=== PATIENT | female | born 1990 | race Two or more races ===

== ENCOUNTER 2021-10-22 23:29 | Emergency (ER) | payer OTHER ==
[~2021-10-22] VITALS: Ht 165.1 cm; Wt 66.0 kg
[2021-10-22 23:33] VITALS: BP 126/79
== END 2021-10-23 02:08 | disposition left against medical advice (07) ==
LOC: ER 23:29
DX: Z53.21 Procedure and treatment not carried out due to patient leaving prior to being seen by health care provider (principal)
CPT/HCPCS: 93005

== ENCOUNTER 2024-11-28 01:49 | Emergency (ER) | payer OTHER ==
[~2024-11-28] VITALS: Ht 165.1 cm; Wt 65.9 kg
[2024-11-28 01:52] VITALS: TEMP 36.4; O2SAT 100
[2024-11-28 03:40] VITALS: BP 126/69; PULSE 67; RESP 18; O2SAT 100
== END 2024-11-28 03:42 | disposition home or self-care (01) ==
LOC: ER 01:49
DX: E10.649 Type 1 diabetes mellitus with hypoglycemia without coma (principal)
CPT/HCPCS: 82962; 99282; Z7610

== ENCOUNTER 2025-04-12 15:52 | Emergency (ER) | payer OTHER ==
[~2025-04-12] VITALS: Ht 167.6 cm; Wt 75.0 kg
[2025-04-12 15:59] VITALS: O2SAT 100
[2025-04-12 16:45] LABS: BASOPHILS % 0.4 % (0.0-2.0); EOSINOPHILS % 1.2 % (0.0-5.0); HEMATOCRIT. 39.8 % (36.0-48.0); HEMOGLOBIN. 13.0 g/dL (12.0-16.0); LYMPHOCYTES % 37.5 % (20.0-50.0); MEAN PLATELET VOLUME 9.2 fl (7.4-10.4); MONOCYTES % 8.3 % (2.0-8.0); NEUTROPHILS % 52.6 % (40.0-76.0); PLATELET 263 x1000/uL (130-400); RED BLOOD CELL COUNT 4.98 mill/uL (4.2-5.4); RED CELL DISTRIBUTION WIDTH 14.7 % (11.6-14.6)
[2025-04-12 16:59] LABS: HCG SCREEN NEGATIVE
[2025-04-12 17:02] LABS: CREATININE 0.7 mg/dL (0.6-1.0); UREA NITROGEN BLOOD 10 mg/dL (9-23)
[2025-04-12 17:03] LABS: PROTEIN TOTAL 6.7 g/dL (6.0-8.3); TROPONIN I HIGH SENSITIVITY < 4 ng/L (3.0-34)
[2025-04-12 17:04] LABS: ASPARTATE AMINOTRANSFERASE 18 IU/L (<34); BILIRUBIN DIRECT < 0.1 mg/dL (<=3.0); BILIRUBIN TOTAL 0.3 mg/dL (0.1-1.0)
[2025-04-12 18:55] LABS: TROPONIN I HIGH SENSITIVITY < 4 ng/L (3.0-34)
[2025-04-12 19:15] VITALS: BP 103/57; PULSE 68; RESP 18; TEMP 36.7; O2SAT 100
[2025-04-12] MEDS ORDERED: IOHEXOL-350 100 ML BOTTLE ONE (22:35)
== END 2025-04-12 19:27 | disposition home or self-care (01) ==
LOC: ER 15:52 → CMPBEDREQ 04-13 08:38
DX: R07.89 Other chest pain (principal); R06.02 Shortness of breath; E10.9 Type 1 diabetes mellitus without complications; Z03.89 Encounter for observation for other suspected diseases and conditions ruled out; Z79.4 Long term (current) use of insulin
CPT/HCPCS: 99285; 71275; 71045; 80076; 80048; 84703; 83880; 83690; 85025; 85379; 84484; 36415; 93005; Q9967